=== PATIENT | male | born 1990 | race Two or more races ===

== ENCOUNTER 2024-10-26 14:26 | Emergency (ER) | payer MEDICAID, SELFPAY ==
[2024-10-26 14:28] VITALS: BMI 32.3
[2024-10-26 14:37] VITALS: BP 146/88; PULSE 86; RESP 18; TEMP 37.1; O2SAT 97; BMI 29.4
--- NOTE | 2024-10-26 14:44 | EDNOTE_ITS ---
ED SOB =RME/HPI General Chief Complaint: Shortness of Breath/Dyspnea Stated Complaint: SOB, Feels as if something is in throat since yest Time Seen by Provider: 10/26/24 14:36 Arrival date/time: 10/26/24 14:26 RME / HPI RME / HPI Narrative: Patient is a 34-year-old male who presents with complaint of shortness of breath onset just prior to arrival. Patient states he feels like there is something in his throat. He has been able to eat and has also been able to drink liquids. Denies any chest pain. No recent travel or recent surgeries. No exogenous hormone use. Patient reports recent cough for about the last 10 days. Related Data Previous Rx's ?Medication ?Instructions ?Recorded epinephrine 0.3 mg/0.3 mL See Rx Instructions .Route 0 12/06/19 injection, auto-injector (EpiPen .COMPLEX #2 ea 2-Sher) omeprazole 20 mg capsule,delayed 20 mg PO QDAY 30 days #30 caps 10/26/24 release Allergies Allergy/AdvReac Type Severity Reaction Status Date / Time No Known Allergies Allergy Verified 03/29/21 12:25 Review of Systems Review of Systems Narrative Review of Systems: Review of systems negative except as outlined in the HPI. Past Medical History Past Medical History CARDIAC: Negative Congestive Heart Failure RESPIRATORY: Negative Chronic Obstructive Pulmonary Disease (COPD) GENITOURINARY: Negative Renal Disease ENDOCRINE: Negative Diabetes Mellitus Type 1 or Diabetes Mellitus Type 2 Social History SMOKING STATUS: Never smoker Travel History EBOLA RISK: No ED Exam Narrative Physical exam: Constitutional: no acute distress, age appropriate, non-toxic Eyes: PERRL, conjunctivae w/o pallor, EOMI HENT: normocephalic, atraumatic. Oral mucosa moist Respiratory Effort: no stridor, effort normal, no retractions Breath sounds: Clear bilaterally; No rales, No rhonchi, No wheezing Cardiovascular: regular rhythm, S1 and S2 normal, no murmur Abdominal: soft; non-distended, non-tender Musculoskeletal: no deformities, no swelling, no LE edema Skin: warm, dry; No rash Neurology: alert, oriented X 4. Normal gait. Moves all extremities spontaneously. Psychology: cooperative, normal mood Course Quality Measures none Orders Category Date Time Status EKG (ED ONLY) *Do not use* NOW Care 10/26/24 14:42 Completed EKG (ED Only) Stat Exams 10/26/24 14:42 Ordered XR chest 2V Stat Exams 10/26/24 14:42 Completed CBC Stat Lab 10/26/24 15:08 Completed CMP [Comprehensive Metabolic Panel] Stat Lab 10/26/24 15:08 Completed Troponin I Stat Lab 10/26/24 15:08 Completed Vital Signs Vital signs: Vital Signs Temperature 98.8 F 10/26/24 14:37 Pulse Rate 86 10/26/24 14:37 Respiratory Rate 18 10/26/24 14:37 Blood Pressure 146/88 H 10/26/24 14:37 Pulse Oximetry (%) 97 10/26/24 14:37 Oxygen Delivery Method Room Air 10/26/24 14:37 Shortness of Breath / Dyspnea MDM Narrative MDM Narrative:: 34-year-old male presents with shortness of breath. Differential diagnoses include ACS, PE, anxiety, GERD, anaphylaxis No evidence of anaphylaxis on exam, patient has clear lungs bilaterally and is speaking full sentences without any respiratory distress. SpO2 normal on room air. PERC negative, do not suspect PE. EKG and troponin were normal to rule out ACS. Suspect patient's symptoms may be related to anxiety or possibly GERD. Recommended follow-up with primary care. Strict return to ED precautions given Patient data External records reviewed:: [facility] previous records Clinical information provided by:: patient Social determinants that could affect healthcare access:: none Patient has the following chronic illnesses:: None How is presenting disease/condition affected by chronic disease/condition?: no chronic disease Evaluation data The following diagnostics were reviewed and interpreted by me:: lab results, radiology exam(s) and EKG tracing(s) Lab and/or radiology exams considered but not ordered:: Considered CT angio chest, but PERC negative. Doubt PE Interpretation Summary: EKG medically necessary in the evaluation of shortness of breath and interpreted by me and ED physician at the time of patient evaluation. Normal sinus rhythm with a rate of 83. MT and QT intervals within normal limits. No ST/T changes. No STEMI. Interpretation: Normal EKG Examination: PA lateral chest 2 views Technique: Upright AP lateral chest 2 views Exam date and time: October 26, 2024 1450 hrs. Indications: Shortness of breath today. Findings: Normal heart size. Lungs are clear. The osseous structures are intact Impression: No active disease Medications / Prescriptions Medications or Prescriptions considered but not ordered:: N/A Medication administrations:: N/A Consultations Consultation(s) initiated? (list below): No Diagnosis Shortness of Breath Differential Diagnosis: other (See MDM section) Most likely diagnosis given after review of the tests above:: Shortness of breath Admission Indicated Admission indicated?: not indicated Admission Request Was there a request for admission?: No Disposition Plan Disposition Plan: Discharge Discharge Attestation Discharge Attestation: The patient and all family members were given an opportunity to ask questions and understood the discharge instructions. Discharge instructions specifically effects, indications for sooner follow up or return to the emergency department, and the expected course of current diagnosis. Patient condition: Stable Discharge Plan Plan Patient Disposition: HOME (Self Care) Prescriptions/Referrals Prescriptions/Med Rec: New omeprazole 20 mg capsule,delayed release(DR/EC) 20 mg PO QDAY 30 Days Qty: 30 0RF No Action epinephrine [EpiPen 2-Sher] 0.3 mg/0.3 mL auto-injector See Rx Instructions .ROUTE .COMPLEX Qty: 2 0RF Rx Instructions: INSTRUCTIONS IN [place] PLEASE USE DIRECTED Referrals: Marianela Rodriguez NP [Primary Care Provider] - In 1 week Problem List Clinical Impression: Breath shortness, Chronic gastroesophageal reflux disease Patient/Caregiver Discharge Instructions Education Materials: ED GERD (Adult) Additional Instructions: Follow up with your PCP. Return to the ED for new or worsening symptoms. Print Language: Qatari Stand Alone Forms: [employer]he[employer] Award Info., Patient Portal Info Letter
[2024-10-26 15:48] LABS: Basophils # (Auto) 0.1 Thou/mm3 (0.0-0.2); Basophils % (Auto) 1 % (0-2.5); Eosinophils # (Auto) 0.2 Thou/mm3 (0.0-0.5); Eosinophils % (Auto) 3 % (0-10); Hematocrit 43.9 % (41.0-53.0); Hemoglobin 15.7 g/dL (13.5-16.0); Immature Granulocytes % (Auto) 0 % (0-0); Immature Granulocytes Auto 0.01 Thou/mm3 (0.00-0.00); Lymphocytes # (Auto) 1.7 Thou/mm3 (1.0-4.8); Lymphocytes % (Auto) 28 % (10-50); Mean Corpuscular HGB Conc 35.8 g/dl (31.0-37.0); Mean Corpuscular Hemoglobin 30.4 pg (25.0-35.0); Mean Corpuscular Volume 85 fL (80-100); Monocytes # (Auto) 0.4 Thou/mm3 (0.0-0.8); Monocytes % (Auto) 6 % (0-12); Neutrophils # (Auto) 3.9 Thou/mm3 (1.8-7.7); Neutrophils % (Auto) 62 % (37-80); Nucleated Red Blood Cell % 0 /100 WBC (0); Platelet Count 264 Thou/mm3 (140-440); RDW Standard Deviation 36.2 fL (35.1-43.9); Red Blood Count 5.16 Miln/mm3 (4.50-5.90); White Blood Count 6.3 Thou/mm3 (3.8-10.6)
[2024-10-26 16:07] LABS: Alanine Aminotransferase 73 U/L (10-49); Albumin, Serum 4.6 gm/dL (3.5-5.0); Albumin/Globulin Ratio 1.6 (1.2-2.2); Alkaline Phosphatase 121 U/L (46-116); Anion Gap 9 (7-16); Aspartate Amino Transferase 25 U/L (0-34); BUN/Creatinine Ratio 10 Ratio (12-20); Bilirubin,Total 0.8 mg/dL (0.3-1.2); Blood Urea Nitrogen 13 mg/dL (9-23); Calcium 9.5 mg/dL (8.3-10.6); Calcium (Corrected) 9.5 mg/dL (8.5-10.1); Carbon Dioxide 26.9 mMol/L (20.0-31.0); Chloride 105 mMol/L (98-107); Creatinine (Component) 1.3 mg/dL (0.6-1.3); Estimated Creatinine Clearance 91.7 mL/min (>60); Globulin 2.9 gm/dL (2.3-3.5); Glucose 100 mg/dL (74-106); Osmolality,Calculated 281 (275-295); Potassium 3.5 mMol/L (3.4-5.1); Sodium 141 mMol/L (136-145); Total Protein 7.5 gm/dL (5.7-8.2); Troponin I < 0.002 ng/mL (0.0-0.045); eGFR > 60 See Note
== END 2024-10-26 16:51 | disposition home or self-care (01) ==
PROVIDERS: Physician Assistant; Emergency Provider Emergency Medicine; PCP Nurse Practitioner Family
DX: R06.02 Shortness of breath (principal); K21.9 Gastro-esophageal reflux disease without esophagitis; Z79.899 Other long term (current) drug therapy
CPT/HCPCS: 36415; 71046; 80053; 84484; 85025; 93005; 99283

== ENCOUNTER → 2025-01-26 | Outpatient (CLI) | payer MEDICAID, SELFPAY ==
--- NOTE | 2025-01-26 09:08 | XR_ITS ---
Imaging: Lumbar spine 3 views Technique one AP lateral coned lateral lower lumbar spine 3 views Date and time: January 26, 2025 0923 hours INDICATIONS: Low back pain several years. 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
--- NOTE | 2025-01-26 09:08 | XR_ITS ---
Examination: Thoracic spine 3 views Technique one AP lateral coned lateral upper dorsal spine 3 views Exam date and time: January 24, 2025 0922 hours INDICATIONS: Upper back pain several years. FINDINGS: Satisfactory alignment thoracic vertebral bodies No thoracic fracture Mild diffuse thoracic disc narrowing IMPRESSION: Mild diffuse thoracic degenerative disc disease
== END | disposition home or self-care (01) ==
PROVIDERS: PCP Nurse Practitioner Family; Referring Provider Nurse Practitioner Family; Visit Provider Nurse Practitioner Family
DX: M51.370 Other intervertebral disc degeneration, lumbosacral region with discogenic back pain only (principal); M51.34 Other intervertebral disc degeneration, thoracic region
CPT/HCPCS: 72070; 72100

== ENCOUNTER → 2025-03-26 | Outpatient (CLI) | payer MEDICAID, SELFPAY ==
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
== END | disposition home or self-care (01) ==
PROVIDERS: Referring Provider Nurse Practitioner Family; Visit Provider Nurse Practitioner Family
DX: G37.9 Demyelinating disease of central nervous system, unspecified (principal); T67.01 Heatstroke and sunstroke
CPT/HCPCS: 70551